=== PATIENT | female | born 1960 | race Caucasian/White ===

== ENCOUNTER 2017-03-18 17:55 | Emergency (ER) | payer SELFPAY ==
[~2017-03-18] VITALS: Ht 165.1 cm; Wt 100.0 kg
[~2017-03-18 17:55] MED LIST: 1-ME1LIQ PO
[2017-03-18 18:01] VITALS: PULSE 72; RESP 16; TEMP 98.4; O2SAT 97
[2017-03-18 19:00] VITALS: BP 168/72
[2017-03-18] MEDS ORDERED: SODIUM CHLOR 0.9% 1000 ML INJ 1,000 ML IV SCH (21:33)
--- NOTE | 2017-03-18 21:41 | PD ---
HPI Chief Complaint: Abdominal Pain Time Seen by Provider: 21:40 Travel History International Travel<30 days: No Contact w/Intl Traveler<30days: No Traveled to known affect area: No History of Present Illness HPI 56 YO F presents to the ED for evaluation of 2 day history of abdominal bloating and constipation. Patient states last bowel movement was 2 days ago. Endorses intermittent nausea and NBNB vomiting. Endorses early satiety. States that she noticed bright red blood on the paper after her last BM. Also states that she is still menstruating every month "like clockwork." Endorses 5 days of heavy bleeding and 2 light days. Currently menstruating. Complains of "being cold all the time," feeling tired and occasionally dizzy. Denies fever, chills , dysuria, back pain. She endorses upper and lower endoscopy ~7 years ago. She does not have a primary care provider. PFSH Past Medical History Arthritis: Yes Asthma: No Blood Disorders: No Anxiety: Yes Heart Rhythm Problems: No Cancer: Yes (non-mal breast;THYROID) Cardiac Catheterization: No Cardiovascular Problems: Yes High Cholesterol: No Chemotherapy: Yes (NEVER HAD FOLLOW UP FOR THYROID) Chest Pain: Yes Congestive Heart Failure: No COPD: No Cerebrovascular Accident: No Diabetes: No Diminished Hearing: No Endocrine: Yes Gastrointestinal Disorders: Yes GERD: No Glaucoma: No Genitourinary: No Headaches: Yes Hepatitis: No Hiatal Hernia: No Hypertension: Yes Immune Disorder: No Kidney Stones: No Musculoskeletal: Yes Neurologic: No Psychiatric: No Reproductive: Yes (multi tubals) Respiratory: No Migraines: No Myocardial Infarction: No Radiation Therapy: No Renal Failure: No Seizures: No Sickle Cell Disease: No Sleep Apnea: No Thyroid Disease: Yes Ulcer: No ?: Not LMP: just finishing : 6 Para: 5 Miscarriage: 1 : 0 Tubal Ligation: Yes Past Surgical History Abdominal Surgery: Yes (gall Bladder removed) AICD: No Arteriovenous Shunt: No Cardiac Surgery: No Section: Yes Cholecystectomy: Yes Coronary Artery Bypass Graft: No Ear Surgery: No Endocrine Surgery: No Eye Surgery: No Genitourinary Surgery: No Gynecologic Surgery: Yes (tubal and ) Hysterectomy: Yes Insulin Pump: No Joint Replacement: No Oral Surgery: No Pacemaker: No Thoracic Surgery: No Tonsillectomy: Yes Other Surgery: Yes Family History Family Myocardial Infarction: Yes (MOTHER) Social History Alcohol Use: No Tobacco Use: No Substance Use: No Allergies-Medications (Allergen,Severity, Reaction): Coded Allergies: No Known Allergies (Unverified , 03/18/17) Reported Meds & Prescriptions Reported Meds & Active Scripts Active No Active Prescriptions or Reported Medications Review of Systems Except as stated in HPI: all other systems reviewed are Neg Physical Exam Narrative GENERAL: Well-nourished, well-developed obese white female no acute distress. SKIN: Focused skin assessment warm/dry. HEAD: Normocephalic. EYES: No scleral icterus. No injection or drainage. NECK: Supple, trachea midline. No JVD or lymphadenopathy. CARDIOVASCULAR: Regular rate and rhythm without murmurs, gallops, or rubs. RESPIRATORY: Breath sounds clear and equal bilaterally. No accessory muscle use. GASTROINTESTINAL: Abdomen protuberant, soft, non-tender, nondistended. Mild suprapubic tenderness. Active bowel sounds. RECTAL EXAM: No masses or tenderness, stool is brown. No stool impaction noted. Guaiac negative. MUSCULOSKELETAL: No cyanosis, or edema. Ambulatory. Moves the extremities spontaneously. BACK: Nontender without obvious deformity. No CVA tenderness. Data Data Last Documented VS Vital Signs Date Time Temp Pulse Resp B/P Pulse Ox O2 Delivery O2 Flow Rate FiO2 03/18/17 22:31 16 97 Room Air 03/18/17 19:00 168/72 03/18/17 18:01 98.4 72 Orders Complete Blood Count With Diff (03/18/17 21:33) Comprehensive Metabolic Panel (03/18/17 21:33) Lipase (03/18/17 21:33) Lactic Acid (03/18/17 21:33) Prothrombin Time / Inr (Pt) (03/18/17 21:33) Act Partial Throm Time (Ptt) (03/18/17 21:33) Urinalysis - C+S If Indicated (03/18/17 21:33) Iv Access Insert/Monitor (03/18/17 21:33) Ecg Monitoring (03/18/17 21:33) Oximetry (03/18/17 21:33) NPO (03/18/17 21:33) Ondansetron Inj (Zofran Inj) (03/18/17 21:45) Sodium Chlor 0.9% 1000 Ml Inj (Ns 1000 M (03/18/17 21:33) Sodium Chloride 0.9% Flush (Ns Flush) (03/18/17 21:45) Abdomen, Flat & Upright (03/18/17 ) Labs Laboratory Tests Test 03/18/17 03/18/17 21:40 22:00 White Blood Count 10.2 TH/MM3 Red Blood Count 5.60 MIL/MM3 Hemoglobin 15.4 GM/DL Hematocrit 47.7 % Mean Corpuscular Volume 85.2 FL Mean Corpuscular Hemoglobin 27.5 PG Mean Corpuscular Hemoglobin 32.3 % Concent Red Cell Distribution Width 15.1 % Platelet Count 196 TH/MM3 Mean Platelet Volume 9.0 FL Neutrophils (%) (Auto) 61.1 % Lymphocytes (%) (Auto) 27.5 % Monocytes (%) (Auto) 8.2 % Eosinophils (%) (Auto) 2.4 % Basophils (%) (Auto) 0.8 % Neutrophils # (Auto) 6.2 TH/MM3 Lymphocytes # (Auto) 2.8 TH/MM3 Monocytes # (Auto) 0.8 TH/MM3 Eosinophils # (Auto) 0.2 TH/MM3 Basophils # (Auto) 0.1 TH/MM3 CBC Comment DIFF FINAL Differential Comment Prothrombin Time 10.0 SEC Prothromb Time International 0.9 RATIO Ratio Activated Partial 28.0 SEC Thromboplast Time Sodium Level 143 MEQ/L Potassium Level 3.8 MEQ/L Chloride Level 106 MEQ/L Carbon Dioxide Level 29.8 MEQ/L Anion Gap 7 MEQ/L Blood Urea Nitrogen 15 MG/DL Creatinine 0.88 MG/DL Estimat Glomerular Filtration 66 ML/MIN Rate Random Glucose 80 MG/DL Calcium Level 9.5 MG/DL Total Bilirubin 0.3 MG/DL Aspartate Amino Transf 22 U/L (AST/SGOT) Alanine Aminotransferase 32 U/L (ALT/SGPT) Alkaline Phosphatase 149 U/L Total Protein 8.4 GM/DL Albumin 4.2 GM/DL Lipase 133 U/L Lactic Acid Level 0.9 mmol/L MDM Medical Decision Making Medical Screen Exam Complete: Yes Emergency Medical Condition: Yes Differential Diagnosis constipation versus GERD versus GI bleed versus abnormal uterine bleeding versus anemia versus other Narrative Course 56 YO F presents to the ED for evaluation of 2 day history of abdominal bloating and constipation. Patient states last bowel movement was 2 days ago. Endorses intermittent nausea and NBNB vomiting. Endorses early satiety. States that she noticed bright red blood on the paper after her last BM. Also states that she is still menstruating every month "like clockwork." Endorses 5 days of heavy bleeding and 2 light days. Currently menstruating. Complains of "being cold all the time," feeling tired and occasionally dizzy. Denies fever, chills , dysuria, back pain. She endorses upper and lower endoscopy ~7 years ago. Vitals reviewed. Physical exam is unremarkable. Guaiac negative on rectal exam , no stool impaction noted.. Upright and supine x-rays reveal no obstructive bowel gas pattern or evidence of stool impaction. No concerning abnormalities of the CBC, CMP or coags. I discussed the results for constipation. She was reassured to take [id number] stool softeners, increase her activity level and fiber intake. She was provided information on [facility] for primary care follow up. She indicated understanding of the discharge instructions and is agreeable to the care plan. She is stable and discharged home. [facility] Point of Care Internal Pos. & Neg. Controls: Passed Fecal Specimen Occult Blood: Negative Diagnosis Primary Impression: Constipation Qualified Code: K59.00 - Constipation, unspecified constipation type Referrals: [facility] Patient Instructions: Constipation (ED), General Instructions Additional Instructions: Be active, hydrate. Take OTC stool softeners as directed on the label. Follow up with the [facility] as discussed. Return to the ED for worsening symptoms or any urgent/ emergent medical condition. Scripts No Active Prescriptions or Reported Meds Disposition: 01 DISCHARGE HOME Condition: Stable Shannan Moffett Mar 18, 2017 21:41
[2017-03-18] MEDS ORDERED: SODIUM CHLORIDE 0.9% FLUSH 10 ML FLUSH IV FLUSH PRN (21:45)
[2017-03-18] MEDS ORDERED: ONDANSETRON HCL 4 MG/2 ML VIAL IVP ONE (21:45)
--- NOTE | 2017-03-18 22:06 | RADRPT ---
EXAM DATE/TIME: 03/18/2017 21:51 [facility] COMPARISON: No previous studies available for comparison. INDICATIONS : Abdominal pain, bloating, and constipation. MEDICAL HISTORY : None. SURGICAL HISTORY : Cholecystectomy. ENCOUNTER: Initial ACUITY: 2 days PAIN SCORE: 3/10 LOCATION: abdomen. FINDINGS: Supine and upright views of the abdomen were performed. Scattered gas and stool in the colon. No campbell dence of free air. Surgical clips in the right upper quadrant. No abnormal abdominal calcification id entified. Mild to moderate bony degenerative findings of the umbar spine. CONCLUSION: Bowel gas pattern within normal limits. Myles Burt MD on March 18, 2017 at 22:03 Board Certified Radiologist. This report was verified electronically.
[2017-03-18 22:30] LABS: AUTOMATED NEUTROPHIL # 6.2 TH/MM3 (1.8-7.7); BASOPHIL # 0.1 TH/MM3 (0-0.2); BASOPHIL % 0.8 % (0.0-2.0); EOSINOPHIL # 0.2 TH/MM3 (0-0.4); EOSINOPHIL % 2.4 % (0.0-4.0); HEMATOCRIT 47.7 % (35.0-46.0); HEMO FLAGS DIFF FINAL; LYMPH % 27.5 % (9.0-44.0); LYMPHOCYTE # 2.8 TH/MM3 (1.0-4.8); MEAN CELL VOLUME 85.2 FL (80.0-100.0); MEAN CORPUSCULAR HEMOGLOBIN 27.5 PG (27.0-34.0); MEAN CORPUSCULAR HGB CONC 32.3 % (32.0-36.0); MONO % 8.2 % (0.0-8.0); NEUT % 61.1 % (16.0-70.0); PLATELET COUNT 196 TH/MM3 (150-450); RED CELL DISTRIBUTION WIDTH 15.1 % (11.6-17.2); WHITE BLOOD COUNT 10.2 TH/MM3 (4.0-11.0)
[2017-03-18 22:31] VITALS: RESP 16; O2SAT 97
[2017-03-18 22:43] LABS: INTERNATIONAL NORMALIZED RATIO 0.9 RATIO
[2017-03-18 22:55] LABS: ALKALINE PHOSPHATASE 149 U/L (45-117); TOTAL BILIRUBIN ADULT 0.3 MG/DL (0.2-1.0)
[2017-03-18 22:57] LABS: ALT (GPT) 32 U/L (10-53); ANION GAP 7 MEQ/L (5-15); AST (GOT) 22 U/L (15-37); BICARBONATE 29.8 MEQ/L (21.0-32.0); BLOOD UREA NITROGEN 15 MG/DL (7-18); CHLORIDE 106 MEQ/L (98-107); GLOMERULAR FILTRATION RATE 66 ML/MIN (>89); POTASSIUM 3.8 MEQ/L (3.5-5.1); SODIUM (NA) 143 MEQ/L (136-145)
== END 2017-03-18 23:55 | disposition home or self-care (01) ==
LOC: NEPD 17:55
DX: K59.00 Constipation, unspecified (principal); I10 Essential (primary) hypertension; R42 Dizziness and giddiness; R53.83 Other fatigue; Z85.850 Personal history of malignant neoplasm of thyroid; Z85.3 Personal history of malignant neoplasm of breast
CPT/HCPCS: 74020; 80053; 83605; 83690; 85025; 85610; 85730; 96374; 99285; J2405; J7030

== ENCOUNTER 2017-07-24 19:42 | Emergency (ER) | payer SELFPAY ==
[2017-07-24 19:45] VITALS: BP 212/99; PULSE 78; RESP 20; TEMP 98.5
[2017-07-24 20:21] VITALS: BP 204/103; PULSE 78; RESP 18; TEMP 98.5; O2SAT 97
--- NOTE | 2017-07-24 20:21 | PD ---
HPI Chief Complaint: Fall Time Seen by Provider: 20:09 Travel History International Travel<30 days: No Contact w/Intl Traveler<30days: No Traveled to known affect area: No History of Present Illness HPI The patient is a 56-year-old female that tripped over an open relations specialist door in her kitchen and complains of pain over the right shoulder, right elbow, right wrist, right hip, right knee, right ankle and left tibial area. She states she could not get up and laid on her kitchen floor for about an hour until her daughter came around and took her to the hospital. The incident happened at 5 PM today. Her last tetanus shot was 2 years ago. She states she has not been drinking any alcohol. PFSH Past Medical History Arthritis: Yes Asthma: No Blood Disorders: No Anxiety: Yes Heart Rhythm Problems: No Cancer: Yes (non-mal breast;THYROID) Cardiac Catheterization: No Cardiovascular Problems: Yes High Cholesterol: No Chemotherapy: Yes (NEVER HAD FOLLOW UP FOR THYROID) Chest Pain: Yes Congestive Heart Failure: No COPD: No Cerebrovascular Accident: No Diabetes: No Diminished Hearing: No Endocrine: Yes Gastrointestinal Disorders: Yes GERD: No Glaucoma: No Genitourinary: No Headaches: Yes Hepatitis: No Hiatal Hernia: No Hypertension: Yes Immune Disorder: No Kidney Stones: No Musculoskeletal: Yes Neurologic: No Psychiatric: No Reproductive: Yes (multi tubals) Respiratory: No Migraines: No Myocardial Infarction: No Radiation Therapy: No Renal Failure: No Seizures: No Sickle Cell Disease: No Sleep Apnea: No Thyroid Disease: Yes Ulcer: No : 6 Para: 5 Miscarriage: 1 : 0 Tubal Ligation: Yes Past Surgical History Abdominal Surgery: Yes (gall Bladder removed) AICD: No Arteriovenous Shunt: No Cardiac Surgery: No Section: Yes Cholecystectomy: Yes Coronary Artery Bypass Graft: No Ear Surgery: No Endocrine Surgery: No Eye Surgery: No Genitourinary Surgery: No Gynecologic Surgery: Yes (tubal and ) Hysterectomy: Yes Insulin Pump: No Joint Replacement: No Oral Surgery: No Pacemaker: No Thoracic Surgery: No Tonsillectomy: Yes Other Surgery: Yes Social History Alcohol Use: No Tobacco Use: No Substance Use: No Allergies-Medications (Allergen,Severity, Reaction): Coded Allergies: No Known Allergies (Unverified , 07/24/17) Reported Meds & Prescriptions Reported Meds & Active Scripts Active No Active Prescriptions or Reported Medications Review of Systems Except as stated in HPI: all other systems reviewed are Neg Physical Exam Narrative GENERAL: The patient is alert, oriented 3 in moderate apparent distress with her multiple aches and pains. Her vital signs show blood pressure 212 over 99. The rest of the vital signs are normal. SKIN: Focused skin assessment warm/dry. There are skin abrasions over the right anterior tibial area. HEAD: Atraumatic. Normocephalic. EYES: Pupils equal and round. No scleral icterus. No injection or drainage. ENT: No nasal bleeding or discharge. Mucous membranes pink and moist. NECK: Trachea midline. No JVD. CARDIOVASCULAR: Regular rate and rhythm. No murmur appreciated. RESPIRATORY: No accessory muscle use. Clear to auscultation. Breath sounds equal bilaterally. GASTROINTESTINAL: Abdomen soft, non-tender, nondistended. Hepatic and splenic margins not palpable. There is tenderness without deformity over the right shoulder, right elbow and right wrist as well as tenderness over the right hip without any foreshortening of the right leg. There is tenderness without deformity over the right knee and right ankle. The patient also has tenderness over the left tibial area and there is a contusion over the left anterior tibial area. MUSCULOSKELETAL: No obvious deformities. No clubbing. No cyanosis. No edema. NEUROLOGICAL: Awake and alert. No obvious cranial nerve deficits. Motor grossly within normal limits. Normal speech. PSYCHIATRIC: Appropriate mood and affect; insight and judgment normal. Data Data Last Documented VS Vital Signs Date Time Temp Pulse Resp B/P (MAP) Pulse Ox O2 Delivery O2 Flow Rate FiO2 07/24/17 22:10 73 18 204/106 (138) 98 Room Air 07/24/17 20:21 98.5 Orders Orders Wound Care (07/24/17 20:21) Elbow, Complete (4 Vws) (07/24/17 20:23) Shoulder, Complete (>2vws) (07/24/17 20:23) Wrist, Complete (Asa5def) (07/24/17 20:23) Ankle, Complete ([id number]) (07/24/17 20:23) Hip, Uni(Ap&Lat) W Ap Pelvis (07/24/17 20:23) Knee, Complete (4vws) (07/24/17 20:23) Tibia/Fibula (Ap/Lat) (07/24/17 20:23) [facility] Medical Decision Making Medical Screen Exam Complete: Yes Emergency Medical Condition: Yes Medical Record Reviewed: Yes Interpretation(s) X-rays of the right knee show no acute findings, mild osteoarthritis of the right knee. X-rays of the left tibia/fibula show normal exam for a patient of this age. X-rays of the right hip show no acute findings, mild osteoarthritis of the hips. X-rays of the right ankle show no acute findings, there are small bone spurs at Achilles and plantar fascial insertion sites. X-rays of the right wrist show mild osteoarthritis in no acute findings. X-rays of the right shoulder show mild osteoarthritis of the right before meals joint and no acute findings. X-rays of the right elbow is are normal. Differential Diagnosis Multiple contusions, contusion elbow, contusion right shoulder, contusion right wrist, contusion right ankle, sprain right ankle, contusion hip on the right, contusion knee, contusion right lower leg, fracture right elbow, fracture left tibia, fracture right knee, fractured right hip, fracture right wrist, fracture right shoulder Narrative Course The patient has multiple contusions including the elbow, shoulder, wrist, ankle , hip and knee on the right and lower leg on the left. Diagnosis Primary Impression: Multiple contusions Med/Other Pt SpecificInfo: Prescription(s) given Scripts Hydrocodone-Acetaminophen (Lortab) 5-325 Mg Tab 1 TAB PO Q6H Y for PAIN, #21 TAB 0 Refills Prov: Pérez Ruiz MD 07/24/17 Disposition: 01 DISCHARGE HOME Condition: Stable Pérez Ruiz MD Jul 24, 2017 20:21
--- NOTE | 2017-07-24 21:45 | RADRPT ---
EXAM DATE/TIME: 07/24/2017 20:51 [facility] COMPARISON: No previous studies available for comparison. INDICATIONS : Left lower leg pain. MEDICAL HISTORY : None. SURGICAL HISTORY : None. ENCOUNTER: Initial ACUITY: 1 day PAIN SCORE: 4/10 LOCATION: Left lower leg. FINDINGS: Two view examination of the left tibia demonstrates no evidence of fracture or dislocation. Bony min eralization is normal. The soft tissue structures are intact. CONCLUSION: Normal examination for a patient of this age. Sami Strickland MD on July 24, 2017 at 21:43 Board Certified Radiologist. This report was verified electronically.
--- NOTE | 2017-07-24 21:46 | RADRPT ---
EXAM DATE/TIME: 07/24/2017 20:51 [facility] COMPARISON: No previous studies available for comparison. INDICATIONS : Right elbow pain. MEDICAL HISTORY : None. SURGICAL HISTORY : None. ENCOUNTER: Initial ACUITY: 1 day PAIN SCORE: 2/10 LOCATION: Right elbow. FINDINGS: Multiple view examination of the right elbow demonstrates no soft tissue swelling, joint effusion, or fracture. The osseous structures are in normal alignment. Bony mineralization is normal. CONCLUSION: Normal examination for a patient of this age. Sami Strickland MD on July 24, 2017 at 21:44 Board Certified Radiologist. This report was verified electronically.
--- NOTE | 2017-07-24 21:47 | RADRPT ---
EXAM DATE/TIME: 07/24/2017 20:51 [facility] COMPARISON: No previous studies available for comparison. INDICATIONS : Right wrist pain. MEDICAL HISTORY : None. SURGICAL HISTORY : None. ENCOUNTER: Initial ACUITY: 1 day PAIN SCORE: 2/10 LOCATION: Right wrist. FINDINGS: Three view examination of the right wrist demonstrates no soft tissue swelling, dislocation, or fract ure. The carpal bones are in normal alignment. The joint spaces are maintained. Bony mineralizatio n is normal. CONCLUSION: 1. Mild osteoarthritis. No acute findings. Sami Strickland MD on July 24, 2017 at 21:46 Board Certified Radiologist. This report was verified electronically.
--- NOTE | 2017-07-24 21:47 | RADRPT ---
EXAM DATE/TIME: 07/24/2017 20:51 [facility] COMPARISON: No previous studies available for comparison. INDICATIONS : Right shoulder pain. MEDICAL HISTORY : None. SURGICAL HISTORY : None. ENCOUNTER: Initial ACUITY: 1 day PAIN SCORE: 2/10 LOCATION: Right shoulder. FINDINGS: Multiple view examination of the right shoulder demonstrates no evidence of fracture or dislocation. The glenohumeral and acromioclavicular joints are maintained. There is normal range of motion betwe en internal and external rotation. Bony mineralization is normal. CONCLUSION: Mild osteoarthritis of the right a.c. joint. No acute findings. Sami Strickland MD on July 24, 2017 at 21:44 Board Certified Radiologist. This report was verified electronically.
--- NOTE | 2017-07-24 21:48 | RADRPT ---
EXAM DATE/TIME: 07/24/2017 20:51 [facility] COMPARISON: No previous studies available for comparison. INDICATIONS : Right ankle pain. MEDICAL HISTORY : None. SURGICAL HISTORY : None. ENCOUNTER: Initial ACUITY: 1 day PAIN SCORE: 2/10 LOCATION: Right ankle. FINDINGS: Three view exam was performed of the right ankle. The bony structures are in normal alignment. No e vidence of fracture, dislocation, or soft tissue swelling. The ankle mortise is intact. No radiopaq ue foreign bodies are seen. Bony mineralization is normal. CONCLUSION: 1. No acute findings. Small bone spurs at Achilles and plantar fascial insertion sites. Sami Strickland MD on July 24, 2017 at 21:46 Board Certified Radiologist. This report was verified electronically.
--- NOTE | 2017-07-24 21:50 | RADRPT ---
EXAM DATE/TIME: 07/24/2017 20:51 [facility] COMPARISON: No previous studies available for comparison. INDICATIONS : Right knee pain. MEDICAL HISTORY : None. SURGICAL HISTORY : None. ENCOUNTER: Initial ACUITY: 1 day PAIN SCORE: 4/10 LOCATION: Right knee. FINDINGS: Four view examination of the right knee demonstrates no evidence of fracture or dislocation. Bony mi neralization is normal. The articular surfaces are intact. The suprapatellar soft tissues have a no rmal configuration. CONCLUSION: 1. No acute findings. Mild osteoarthritis right knee. Sami Strickland MD on July 24, 2017 at 21:48 Board Certified Radiologist. This report was verified electronically.
--- NOTE | 2017-07-24 21:50 | RADRPT ---
EXAM DATE/TIME: 07/24/2017 20:51 [facility] COMPARISON: No previous studies available for comparison. INDICATIONS : Right hip pain. MEDICAL HISTORY : None. SURGICAL HISTORY : None. ENCOUNTER: Initial ACUITY: 1 day PAIN SCORE: 5/10 LOCATION: Right hip. FINDINGS: Examination of the right hip was performed with AP Pelvis. The primary and secondary trabecular luis armando alyssa of the femoral neck is intact. The hip joint is of normal width without significant sclerosis or bony hypertrophy. The acetabulum is grossly intact. CONCLUSION: 1. No acute findings. Mild osteoarthritis of the hips. Sami Strickland MD on July 24, 2017 at 21:47 Board Certified Radiologist. This report was verified electronically.
[2017-07-24 22:10] VITALS: BP 204/106; PULSE 73; RESP 18; O2SAT 98
[2017-07-24] MEDS ORDERED: HYDR-3533 PO (22:44)
== END 2017-07-24 22:59 | disposition home or self-care (01) ==
LOC: PHED 19:42
DX: T14.8XXA Other injury of unspecified body region, initial encounter (principal); W18.09XA Striking against other object with subsequent fall, initial encounter; Y92.000 Kitchen of unspecified non-institutional (private) residence as the place of occurrence of the external cause
CPT/HCPCS: 73030; 73080; 73110; 73502; 73564; 73590; 73610; 99284